=== PATIENT | female | born 1980 | race Caucasian/White ===

== ENCOUNTER 2020-04-11 12:14 | Emergency (ER) | payer SELFPAY ==
[2020-04-11 12:31] VITALS: BP 112/76
[2020-04-11] MEDS ORDERED: CLEOCIN HCL300 MG PO (13:23)
== END 2020-04-11 13:35 | disposition home or self-care (01) ==
LOC: ED 12:14
DX: L02.412 Cutaneous abscess of left axilla (principal); L02.31 Cutaneous abscess of buttock; F17.210 Nicotine dependence, cigarettes, uncomplicated

== ENCOUNTER 2022-03-05 12:18 | Emergency (ER) | payer OTHER ==
[~2022-03-05] VITALS: Ht 167.6 cm; Wt 72.2 kg
[~2022-03-05 12:18] MED LIST: CLEOCIN HCL300 MG PO
[2022-03-05 12:57] LABS: BASO # 0.03 K/mm3 (0.02-0.10); EOS # 0.02 K/mm3 (0.04-0.40); EOS % 0.2 % (1.0-5.0); LYMPH# 0.85 K/mm3 (1.50-4.00); MEAN CELL VOLUME 96 fl (78-100); MEAN CORPUSCULAR HEMOGLOBIN 32 pg (27-31); MEAN CORPUSCULAR HGB CONC 33 g/dL (33-37); MONO # 0.74 K/mm3 (0.20-0.80); NEU # 11.38 K/mm3 (1.40-6.50); PLATELET COUNT 216 K/mm3 (130-400); RED BLOOD COUNT 4.37 M/mm3 (4.10-5.30); RED CELL DISTRIBUTION WIDTH 12.7 % (11.5-14.5)
[2022-03-05 13:09] LABS: ALBUMIN 3.7 g/dL (3.5-5.0); POTASSIUM 3.9 mmol/L (3.5-5.1)
[2022-03-05 13:10] LABS: CALCIUM 9.2 mg/dL (8.3-10.5)
[2022-03-05 13:12] LABS: TOTAL PROTEIN 6.9 g/dL (6.4-8.3)
[2022-03-05 13:14] LABS: TOTAL BILIRUBIN 0.6 mg/dL (0.2-1.2)
[2022-03-05 13:20] LABS: URINE APPEARANCE CLEAR; URINE COLOR YELLOW
[2022-03-05 13:21] LABS: URINE BILIRUBIN NEGATIVE (NEGATIVE); URINE BLOOD TRACE (NEGATIVE); URINE GLUCOSE NEGATIVE (NEGATIVE); URINE KETONE NEGATIVE (NEGATIVE); URINE LEUKOCYTE ESTERASE TRACE (NEGATIVE); URINE MUCUS PRESENT (NOT PRESENT); URINE NITRATE NEGATIVE (NEGATIVE); URINE PROTEIN(semi-quant) TRACE (NEGATIVE); URINE UROBILINOGEN NORMAL (NORMAL)
[2022-03-05] MEDS ORDERED: ZOFRAN ODT4 MG PO (14:48)
[2022-03-05] MEDS ORDERED: CEFDINIR300 MG PO (14:48)
[2022-03-05 15:18] VITALS: BP 108/77
== END 2022-03-05 15:13 | disposition home or self-care (01) ==
LOC: ED 12:18
PROVIDERS: Physician Assistant
DX: N39.0 Urinary tract infection, site not specified (principal); R79.82 Elevated C-reactive protein (CRP); R10.11 Right upper quadrant pain; R19.7 Diarrhea, unspecified; F17.210 Nicotine dependence, cigarettes, uncomplicated; Z88.1 Allergy status to other antibiotic agents; Z28.310 Unvaccinated for COVID-19
CPT/HCPCS: J0696; J2405; J7030

== ENCOUNTER 2023-10-13 11:35 | Emergency (ER) | payer OTHER ==
[~2023-10-13] VITALS: Ht 167.6 cm; Wt 70.3 kg
[~2023-10-13 11:35] MED LIST changes: +CEFDINIR300 MG PO; +ZOFRAN ODT4 MG PO
[2023-10-13] MEDS ORDERED: PRISTIQ ER25 MG (12:12)
[2023-10-13 12:38] VITALS: BP 129/87
== END 2023-10-13 12:38 | disposition home or self-care (01) ==
LOC: ED 11:35
DX: R51.9 Headache, unspecified (principal); Z86.69 Personal history of other diseases of the nervous system and sense organs
CPT/HCPCS: J1885